=== PATIENT | male | born 1955 | race Caucasian/White ===

== ENCOUNTER 2020-08-31 21:04 | Emergency (ER) | payer BC ==
[~2020-08-31] VITALS: Ht 185.4 cm; Wt 104.3 kg
[~2020-08-31 21:04] MED LIST: BYETTA10 MCG/0.0 SQ; FENOFIBRATE200 MG PO; GLIMEPIRIDE4 MG PO; JANUVIA100 MG PO; PIOGLITAZONE-M1 EAC1 PO; VYTORIN 10-401 EACH PO
[2020-08-31 21:53] LABS: BASOPHILS % 0.4 % (0.0-1.0); EOSINOPHILS # (AUTO) 0.1 (0.0-0.4); EOSINOPHILS % 1.1 % (0.0-6.0); HEMATOCRIT 51.7 % (38.2-49.6); HEMOGLOBIN 17.8 g/dL (14.0-18.0); LYMPHOCYTES # (AUTO) 1.6 (1.0-3.2); LYMPHOCYTES % 15.2 % (18.0-39.1); MEAN CORPUSCULAR HEMOGLOBIN 32.5 pg (28-32); MEAN CORPUSCULAR HGB CONC 34.4 g/dL (31-35); MEAN CORPUSCULAR VOLUME 94.5 fL (81-99); MONOCYTES # (AUTO) 0.7 (0.2-0.8); MONOCYTES % 7.1 % (4.4-11.3); NEUTROPHILS # (AUTO) 7.9 (2.1-6.9); NEUTROPHILS % 75.7 % (38.7-80.0); PLATELET COUNT 226 x10e3/uL (140-360); RED BLOOD COUNT 5.47 x10e6/uL (4.3-5.7); RED CELL DISTRIBUTION WIDTH 12.9 % (11.7-14.4)
[2020-08-31] MEDS ORDERED: KETOROLAC TROMETHAMINE 30 MG/ML VIAL IV STA (22:05)
[2020-08-31 22:11] LABS: ALANINE AMINOTRANSFERASE 24 IU/L (0-55); ALBUMIN/GLOBULIN RATIO 0.9 (0.8-2.0); ALKALINE PHOSPHATASE 149 IU/L (40-150); ANION GAP 19.4 mmol/L (8-16); BLOOD UREA NITROGEN 18 mg/dL (7-26); BUN/CREATININE RATIO 17 (6-25); CALCIUM 9.2 mg/dL (8.4-10.2); CARBON DIOXIDE 24 mmol/L (22-29); CHLORIDE 99 mmol/L (98-107); CREATINE KINASE 63 IU/L (30-200); CREATININE, SERUM 1.04 mg/dL (0.72-1.25); EST GLOMERULAR FILTRATION RATE 72 ML/MIN (60-); GLUCOSE 388 mg/dL (74-118); POTASSIUM 4.4 mmol/L (3.5-5.1); SODIUM 138 mmol/L (136-145)
[2020-08-31] MEDS ORDERED: DIAZEPAM INJ 5 MG/ML 2 ML IV ONE (22:15)
[2020-08-31] MEDS ORDERED: SODIUM CHLORIDE 0.9% 100 ML ONE (22:38)
[2020-08-31] MEDS ORDERED: IOPAMIDOL 370 MG/ML 200 ML INFUS..BTL INJ ONE (22:38)
[2020-08-31 23:27] VITALS: BP 115/72
[2020-08-31] MEDS ORDERED: METHOCARBAMOL750 MG PO (23:51)
== END 2020-09-01 00:03 | disposition home or self-care (01) ==
LOC: ER 21:16
DX: S13.8XXA Sprain of joints and ligaments of other parts of neck, initial encounter (principal); E11.65 Type 2 diabetes mellitus with hyperglycemia
CPT/HCPCS: 36415; 70496; 70498; 80053; 82550; 82553; 84484; 85025; 93005; 99284; J1885; J3360; J7050; Q9967